=== PATIENT | female | born 1980 | race American Indian/Alaskan Native ===

== ENCOUNTER 2019-01-02 12:08 | Emergency (ER) | payer OTHER, BC ==
[2019-01-02 12:11] VITALS: BP 111/74; PULSE 80; RESP 18; TEMP 98.5; O2SAT 100; BMI 21.5
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
== END 2019-01-02 13:47 | disposition home or self-care (01) ==
LOC: H.ER 12:08
DX: Z04.1 Encounter for examination and observation following transport accident (principal); Y99.0 Civilian activity done for income or pay